=== PATIENT | male | born 1975 | race Caucasian/White ===

== ENCOUNTER 2017-04-26 08:03 | Emergency (ER) | payer OTHER ==
[2017-04-26] MEDS ORDERED: Albuterol 0.083% 2.5 MG/3 ML Neb Soln NEB ONE (08:17)
--- NOTE | 2017-04-26 08:23 | EDM.PDOC ---
ED HPI GENERAL MEDICAL PROBLEM - General Chief Complaint: Respiratory Problem Stated Complaint: CHEST PAIN Time Seen by Provider: 04/26/17 08:10 Source of Information: Reports: Patient History Limitations: Reports: Other (No old records available.) - History of Present Illness INITIAL COMMENTS - FREE TEXT/NARRATIVE: 41 yo male presents with mild chest tightness and SOB over the past roughly 3 days. Some cough. No fever. Not a smoker. No hx of asthma. Cough non- productive. FHx of heart dz in a grandfather who got CAD in his 60's. No hx of HTN. Some nasal congestion. No nausea, or diaphoresis. Onset: Gradual Onset Date: 04/23/17 Duration: Day(s):, Getting Worse Location: Reports: Chest Quality: Reports: Other (mild tightness.) Severity: Mild Improves with: Reports: Rest Worsens with: Reports: Movement Context: Reports: Other ([place]) Associated Symptoms: Reports: Cough, Shortness of Breath (HELLER). Denies: Diaphoresis, Fever/Chills, Nausea/Vomiting Treatments [employer]: Reports: Other (see below) (none) - Related Data Allergies Allergy/AdvReac Type Severity Reaction Status Date / Time No Known Allergies Allergy Verified 04/26/17 08:26 ED ROS GENERAL - Review of Systems Review Of Systems: See Below Constitutional: Reports: No Symptoms HEENT: Reports: Rhinitis Respiratory: Reports: Shortness of Breath, Cough. Denies: Pleuritic Chest Pain , Sputum, Hemoptysis Cardiovascular: Reports: Chest Pain (mild chest tightness), Dyspnea on Exertion. Denies: Blood Pressure Problem Endocrine: Reports: No Symptoms GI/Abdominal: Reports: No Symptoms : Reports: No Symptoms Musculoskeletal: Reports: No Symptoms Skin: Reports: No Symptoms Neurological: Reports: No Symptoms ED EXAM, GENERAL - Physical Exam Exam: See Below Exam Limited By: No Limitations General Appearance: Alert, WD/WN, No Apparent Distress Eye Exam: Bilateral Eye: Conjunctival Injection, Normal Inspection, PERRL Ears: Normal External Exam, Normal Canal, Hearing Grossly Normal, Normal TMs Ear Exam: Bilateral Ear: Auricle Normal, Canal Normal, TM normal Nose: Normal Inspection, Normal Mucosa, No Blood Throat/Mouth: Normal Inspection, Normal Lips, Normal Teeth, Normal Oropharynx, Normal Voice, No Airway Compromise Head: Atraumatic, Normocephalic Neck: Normal Inspection, Supple, Non-Tender Respiratory/Chest: No Respiratory Distress, No Accessory Muscle Use, Wheezing. No: Retractions Cardiovascular: Regular Rate, Rhythm, No Edema Extremities: Normal Inspection, Normal Range of Motion, Non-Tender, No Pedal Edema Neurological: Alert, Oriented, CN II-XII Intact, Normal Cognition, No Motor/ Sensory Deficits Psychiatric: Normal Affect, Normal Mood Skin Exam: Warm, Dry, Intact, Normal Color, No Rash Lymphatic: No Adenopathy EKG INTERPRETATION EKG Date: 04/26/17 Time: 08:10 Rhythm: NSR Rate (Beats/Min): 92 [place]: Normal P-Wave: Present QRS: Normal ST-T: Normal (? very subtly ST depression in inferior leads.) QT: Normal Comparison: NA - No Prior EKG Course - Vital Signs Last Recorded V/S: Last Vital Signs Temp 36.6 C 04/26/17 08:34 Pulse 102 H 04/26/17 08:34 Resp 15 04/26/17 08:34 BP 165/102 H 04/26/17 08:34 Pulse Ox 100 04/26/17 08:34 - Orders/Labs/Meds Orders: Active Orders 24 hr Category Date Time Status EKG Documentation Completion [RC] ASDIRECTED Care 04/26/17 08:09 Active RT Aerosol Therapy [RC] ASDIRECTED Care 04/26/17 08:18 Active EKG 12 Lead [EK] Routine Ther 04/26/17 08:09 Ordered Meds: Medications Discontinued Medications Generic Name Dose Route Start Last Admin Trade Name Freq PRN Reason Stop Dose Admin Albuterol 2.5 mg 04/26/17 08:17 04/26/17 08:23 Proventil Neb Soln NEB 04/26/17 08:18 2.5 mg ONETIME ONE Administration Departure - Departure Time of Disposition: 08:41 Disposition: Home, Self-Care 01 Condition: Good Clinical Impression: Bronchospasm - Discharge Information Referrals: PCP,None [Primary Care Provider] - Forms: ED Department Discharge - My Orders Last 24 Hours: My Active Orders 04/26/17 08:09 EKG Documentation Completion [RC] ASDIRECTED EKG 12 Lead [EK] Routine 04/26/17 08:18 RT Aerosol Therapy [RC] ASDIRECTED - Assessment/Plan Last 24 Hours: My Active Orders 04/26/17 08:09 EKG Documentation Completion [RC] ASDIRECTED EKG 12 Lead [EK] Routine 04/26/17 08:18 RT Aerosol Therapy [RC] ASDIRECTED
[2017-04-26 08:53] VITALS: BP 165/102
== END 2017-04-26 08:50 | disposition home or self-care (01) ==
LOC: FB.ED 08:03
DX: J98.01 Acute bronchospasm (principal)
CPT/HCPCS: 93005; 94640; 99285